=== PATIENT | female | born 1965 | race Caucasian/White ===

== ENCOUNTER → 2016-09-27 | Outpatient (CLI) | payer OTHER ==
[~2016-09-27] MED LIST: ATV5X PO; DICY10CA12 PO; ESCI10TA17 PO; LMC25 PO; LORA-741 PO; LXP/20 PO; MIRT30TA3 PO; MIRT30TA5 PO; OMEP20CA9 PO; OMEP20TA PO; ONDA4TAB9 PO; OPTIRAY 320 IV PRN; OXYC-57 PO; PROM25TA9 PO
--- NOTE | 2016-09-27 16:02 | DIAGNOSTIC IMAGING REPORT ---
ABDOMEN AND PELVIS CT WITH IV AND ORAL CONTRAST CT DOSE: 1570.13 mGy.cm HISTORY: Right lower quadrant abdominal pain. TECHNIQUE: Multiaxial CT images of the abdomen and pelvis were performed following the use of intravenous and oral contrast. COMPARISON STUDY: None. FINDINGS: A few subcentimeter pulmonary nodules remain stable and are considered to be benign. The liver, spleen, pancreas, kidneys, and adrenal glands are within normal limits. No bowel wall thickening or obstruction. The pelvic organs are unremarkable. No suspicious lytic or blastic osseous lesions. The appendix is normal in caliber measuring up to 6 mm in diameter. This remains unchanged. No periappendiceal fat stranding. No change in the submucosal fat deposition within the proximal colon. A few colonic diverticula. Tiny fat-containing umbilical hernia. Cholecystectomy. IMPRESSION: 1. Normal appendix. 2. No bowel wall thickening or obstruction. 3. Cholecystectomy. Electronically signed by: Galdino Carrasco M.D. 09/27/2016 4:00 PM Dictated Date/Time: 09/27/2016 3:46 PM
[2016-09-27 17:40] LABS: BASO % 0.3 %; BASO ABS # 0.02 K/uL (0-0.2); COMPLETE YES; EOS % 2.9 %; HEMATOCRIT 46.2 % (37-47); IG% 0.1 %; LYMPH % 31.1 %; LYMPH ABS # 2.15 K/uL (1.2-3.4); MEAN CELL VOLUME 93.5 fL (80-100); MEAN CORPUSCULAR HGB CONC 33.1 g/dl (32-36); MEAN PLATELET VOLUME 10.5 fL (7.4-10.4); MONO % 4.5 %; NEUT % 61.1 %; PLATELET COUNT 282 K/uL (130-400); RED BLOOD COUNT 4.94 M/uL (4.2-5.4); WHITE BLOOD COUNT 6.91 K/uL (4.8-10.8)
[2016-09-27 18:07] LABS: ALT/SGPT 23 U/L (12-78); AST/SGOT 8 U/L (15-37); BLOOD UREA NITROGEN 7 mg/dl (7-18); BUN/CREATININE RATIO 8.2 (10-20); CALCIUM 8.8 mg/dl (8.5-10.1); CARBON DIOXIDE 32 mmol/L (21-32); CHLORIDE 102 mmol/L (98-107); CREATININE 0.84 mg/dl (0.60-1.20); GLUCOSE 77 mg/dl (70-99); SODIUM 141 mmol/L (136-145)
[2016-09-27 18:09] LABS: ALKALINE PHOSPHATASE 122 U/L (45-117)
== END | disposition home or self-care (01) ==
LOC: C.CTS 13:34
PROVIDERS: ATTEND Internal Medicine
DX: R10.31 Right lower quadrant pain (principal); Z90.49 Acquired absence of other specified parts of digestive tract

== ENCOUNTER 2016-09-28 18:05 | Emergency (ER) | payer OTHER ==
[~2016-09-28] VITALS: Ht 158.8 cm; Wt 118.4 kg
[~2016-09-28 18:05] MED LIST changes: -ATV5X PO; -DICY10CA12 PO; -LMC25 PO; -LXP/20 PO; -MIRT30TA3 PO; -OMEP20CA9 PO; -ONDA4TAB9 PO
[2016-09-28 18:20] VITALS: TEMP 36.9; Ht 158.8 cm; Wt 118.4 kg
[2016-09-28] MEDS ORDERED: MoRPHine SULFATE 10 MG/ML CARP/VIAL IV STA (19:40)
[2016-09-28] MEDS ORDERED: SODIUM CHLORIDE 0.9% 1000ML 1,000 ML IV STA (19:40)
[2016-09-28] MEDS ORDERED: ONDANSETRON INJ 2 MG/ML 2 ML VIAL IV STA (19:40)
[2016-09-28 20:03] LABS: BASO % 0.4 %; BASO ABS # 0.03 K/uL (0-0.2); COMPLETE YES; EOS % 1.7 %; HEMATOCRIT 44.4 % (37-47); LYMPH % 28.4 %; LYMPH ABS # 2.05 K/uL (1.2-3.4); MEAN CELL VOLUME 93.5 fL (80-100); MEAN CORPUSCULAR HGB CONC 34.2 g/dl (32-36); MEAN PLATELET VOLUME 10.2 fL (7.4-10.4); MONO % 5.1 %; NEUT % 64.4 %; PLATELET COUNT 257 K/uL (130-400); RED BLOOD COUNT 4.75 M/uL (4.2-5.4); WHITE BLOOD COUNT 7.23 K/uL (4.8-10.8)
[2016-09-28 20:22] LABS: ALT/SGPT 28 U/L (12-78); BLOOD UREA NITROGEN 6 mg/dl (7-18); CALCIUM 8.5 mg/dl (8.5-10.1); CARBON DIOXIDE 29 mmol/L (21-32); CHLORIDE 105 mmol/L (98-107); CREATININE 0.89 mg/dl (0.60-1.20); GLUCOSE 88 mg/dl (70-99); POTASSIUM 3.8 mmol/L (3.5-5.1); SODIUM 142 mmol/L (136-145)
[2016-09-28 20:25] LABS: URINE APPEARANCE CLOUDY (CLEAR); URINE BILIRUBIN NEG (NEG); URINE COLOR DK YELLOW; URINE EPITHELIAL CELL AUTO >30 /lpf (0-5); URINE NITRITE NEG (NEG); URINE PH 5.5 (4.5-7.5); URINE SPECIFIC GRAVITY 1.021 (1.000-1.030); UROBILINOGEN NEG (NEG)
[2016-09-28 20:25] LABS: ALKALINE PHOSPHATASE 117 U/L (45-117); AST/SGOT 17 U/L (15-37)
[2016-09-28 20:35] LABS: MANUAL MICROSCOPIC REQUIRED? NO; REVIEW REQ? NO
--- NOTE | 2016-09-28 20:59 | DIAGNOSTIC IMAGING REPORT ---
PELVIC ULTRASOUND, TRANSABDOMINAL AND TRANSVAGINAL HISTORY: Right lower quadrant pain. COMPARISON: Abdomen and pelvis CT 09/27/2016. FINDINGS: Uterus: 7.8 x 4.4 x 4.7 cm. There are a few small nabothian cysts. Endometrial stripe: 4 mm in thickness. Right ovary: Obscured by overlying bowel gas. No adnexal masses. Left ovary: Obscured by overlying bowel gas. No adnexal masses. Miscellaneous:Trace pelvic free fluid. IMPRESSION: 1. No significant abnormality within the pelvis. 2. Trace pelvic free fluid is likely physiologic. 3. The ovaries were obscured by overlying bowel gas. However, no adnexal masses identified. Electronically signed by: Galdino Carrasco M.D. 09/28/2016 8:58 PM Dictated Date/Time: 09/28/2016 8:56 PM
[2016-09-28 21:33] VITALS: BP 124/94; PULSE 68; O2SAT 92
--- NOTE | 2016-09-29 15:01 | EMERGENCY ROOM VISIT NOTE ---
ED Visit Note First contact with patient: 19:08 Chief Complaint: Abdominal pain. History of Present Illness: Ms. Merida is a 51 year-old white female who ambulates into the ED accompanied by male friend complaining of right lower quadrant abdominal pain. Historically patient reports she was seen by her slots manager and laboratory tests and an abdominal CT were performed and were all reported as normal without any signs of an acute appendicitis. Patient reports she has been having similar symptoms once a year at this time. She has been diagnosed with ovarian cysts previously. She followed up with an MANAGER OF INVESTIGATIONS who she reports he was not going to do any testing because of her enlarged liver; I did review her medical records and with multiple CAT scans and ultrasounds there is never been a diagnosis of an enlarged liver. Patient reports a onset abdominal pain for approximately one week. She reports her pain started as a crampy sensation in the upper abdomen similar to her previous episodes of irritable bowel syndrome. She goes on to report 3 days ago her pain migrated and has constantly been located in the right lower quadrant since that time. Currently she describes her pain as someone stabbing her with a hot poker and twisting the poker just superior to McBurney's point. She rates her discomfort 10/10. Her pain is nonradiating. Her pain worsens with palpation. She has not identified any alleviating factors related to the pain. She reports she took Percocet approximately 10 PM last evening with minimal relief of her discomfort. Associated with her pain she reports she has been having hot flashes and chills, she has been nauseated and has not vomited and has had a few episodes of brown waterish stools. Patient denies sweats, skin eruptions, skin color changes, upper respiratory tract symptoms, shortness of breath, chest pain, diarrhea, constipation, rectal bleeding, black/tarry stools, urinary symptoms, hematuria, vaginal bleeding, vaginal discharge, back/flank pain. Review of Systems: As noted above in history of present illness. All body systems were reviewed and found to be negative as noted above. Past Medical History: As noted above, Iniguez's esophagus, bronchitis, multiple orthopedic injuries, breast reduction, irritable lesion. Current Medications: Percocet, Phenergan, omeprazole, dicyclomine, mirtazapine, Lexapro, Ativan, lamotrigine. Allergies to Medications: Latex, hydrocodone. Social History: Patient is currently employed; she lives with her and feels safe in her home environment; she admits to tobacco and alcohol use. Physical Examination: Vital Signs: Date Time Temp Pulse Resp B/P Pulse Ox O2 Delivery O2 Flow Rate FiO2 09/28/16 21:33 68 18 124/94 92 Room Air 09/28/16 19:58 75 18 137/77 92 Room Air 09/28/16 18:20 36.9 87 18 150/87 97 Room Air GENERAL: 51-year-old female in mild to moderate distress due to pain, nontoxic- appearing, afebrile and hemodynamically stable. NEUROLOGICAL: Awake, alert and oriented to person, place and time. Answering questions appropriately and following commands. Normal gait. Good hand eye coordination. SKIN: Warm, dry and pink. No soft tissue eruptions or trauma noted. HEENT: Atraumatic and normocephalic. PERRL. Sclera white and conjunctiva pink. Oral cavity moist and pink. Pharynx is nonerythematous or edematous. Speech normal. No lymphadenopathy. Trachea midline. No jugular venous distention. BACK: No tenderness over the bony spine. No CVA tenderness. THORAX: Lungs sounds are clear to auscultation and equal bilaterally with symmetrical chest wall. No wheezing, rales or rhonchi. No crepitus, tenderness , subcutaneous air or deformities noted. HEART: Regular rate and rhythm. No gallops, rubs or murmurs are appreciated. ABDOMEN: Obese and soft with moderate tenderness just superior to McBurney's point and extending superiorly in the right lower quadrant to the superior border of the right lower quadrant. Positive bowel sounds in all quadrants. No guarding, rigidity or organomegaly. EXTREMITIES: Moves all extremities well on command and with purpose. All distal neurovascular statuses are intact and equal bilaterally. ED Course: Patient is assessed as noted above. Laboratory Testing: Test 09/28/16 19:50 09/28/16 19:57 Range/Units White Blood Count 7.23 4.8-10.8 K/uL Red Blood Count 4.75 4.2-5.4 M/uL Hemoglobin 15.2 12.0-16.0 g/dL Hematocrit 44.4 37-47 % Mean Corpuscular Volume 93.5 80-100 fL Mean Corpuscular Hemoglobin 32.0 25-34 pg Mean Corpuscular Hemoglobin Concent 34.2 32-36 g/dl Platelet Count 257 130-400 K/uL Mean Platelet Volume 10.2 7.4-10.4 fL Neutrophils (%) (Auto) 64.4 % Lymphocytes (%) (Auto) 28.4 % Monocytes (%) (Auto) 5.1 % Eosinophils (%) (Auto) 1.7 % Basophils (%) (Auto) 0.4 % Neutrophils # (Auto) 4.66 1.4-6.5 K/uL Lymphocytes # (Auto) 2.05 1.2-3.4 K/uL Monocytes # (Auto) 0.37 0.11-0.59 K/uL Eosinophils # (Auto) 0.12 0-0.5 K/uL Basophils # (Auto) 0.03 0-0.2 K/uL RDW Standard Deviation 50.7 36.4-46.3 fL RDW Coefficient of Variation 15.0 11.5-14.5 % Immature Granulocyte % (Auto) 0.0 % Immature Granulocyte # (Auto) 0.00 0.00-0.02 K/uL Sodium Level 142 136-145 mmol/L Potassium Level 3.8 3.5-5.1 mmol/L Chloride Level 105 98-107 mmol/L Carbon Dioxide Level 29 21-32 mmol/L Anion Gap 8.0 3-11 mmol/L Blood Urea Nitrogen 6 7-18 mg/dl Creatinine 0.89 0.60-1.20 mg/dl Est Creatinine Clear Calc Drug Dose 94.3 ml/min Estimated GFR () 88.2 Estimated GFR (Non- 76.1 BUN/Creatinine Ratio 7.0 10-20 Random Glucose 88 70-99 mg/dl Calcium Level 8.5 8.5-10.1 mg/dl Total Bilirubin 0.3 0.2-1 mg/dl Direct Bilirubin < 0.1 0-0.2 mg/dl Aspartate Amino Transf (AST/SGOT) 17 15-37 U/L Alanine Aminotransferase (ALT/SGPT) 28 12-78 U/L Alkaline Phosphatase 117 45-117 U/L Total Protein 7.3 6.4-8.2 gm/dl Albumin 3.6 3.4-5.0 gm/dl Lipase 75 73-393 U/L Urine Color DK YELLOW Urine Appearance CLOUDY CLEAR Urine pH 5.5 4.5-7.5 Urine Specific [place] 1.021 1.000-1.030 Urine Protein NEG NEG Urine Glucose (UA) NEG NEG Urine Ketones NEG NEG Urine Occult Blood NEG NEG Urine Nitrite NEG NEG Urine Bilirubin NEG NEG Urine Urobilinogen NEG NEG Urine Leukocyte Esterase LARGE NEG Urine WBC (Auto) >30 0-5 /hpf Urine RBC (Auto) 0-4 0-4 /hpf Urine Hyaline Casts (Auto) 5-10 0-5 /lpf Urine Epithelial Cells (Auto) >30 0-5 /lpf Urine Bacteria (Auto) 1+ NEG Pelvic Ultrasound; Transabdominal and Transvaginal: Were reviewed by myself and read by the radiologist showing no significant abnormalities within the pelvis, trace pelvic fluid most likely physiologic, ovaries were obscured with overlying bowel gas but no adnexal masses were identified. Patient was hydrated with normal saline and patient received 6 mg of morphine IV and 4 mg of Zofran IV Patient was reassessed multiple times during her stay in the emergency department. Patient's case was reviewed with Dr. Dela Cruz; we agreed on diagnostic approach, treatment, disposition and plan. Patient was educated about lulú's findings and instructed on her treatment plan; she verbalizes understanding and agreement with this plan. Clinical Impression: Right lower quadrant abdominal pain. Decision-Making: Initially my differential diagnosis I considered appendicitis, constipation, ovarian cyst rupture, ovarian torsion, kidney stone, bowel obstruction, and other causes. Disposition: Patient discharged home in stable condition accompanied by her ; prior to departure she was reassessed and subjectively reported that she was pain and symptom-free. Plan: Patient was encouraged to continue to use acetaminophen for mild pain or her prescribed Percocet for severe pain; she was instructed not to take them together and separate there use by 6 hours. Patient was encouraged to continue to take her Zofran as needed for nausea/ vomiting. Patient was encouraged to follow-up with her slots manager and/or [facility] gynecology for specialty care and treatment. Patient was encouraged return the ED for worsening/uncontrolled pain, fevers, bloody stools, bloody vomitus or any new/concerning symptoms.
[2016-10-05] MEDS ORDERED: DICY10CA12 PO (00:15)
[2016-10-05] MEDS ORDERED: LMC25 PO (19:12)
== END 2016-09-28 21:33 | disposition home or self-care (01) ==
LOC: C.EDB 18:07 → C.EDC 21:33
DX: R10.31 Right lower quadrant pain (principal)

== ENCOUNTER → 2016-09-28 | Outpatient (CLI) | payer OTHER ==
[~2016-09-28] MED LIST changes: -OPTIRAY 320 IV PRN
== END | disposition home or self-care (01) ==
LOC: C.LABSPEC 07:37
PROVIDERS: ATTEND Internal Medicine
DX: R10.31 Right lower quadrant pain (principal)

== ENCOUNTER → 2016-10-03 | Outpatient (CLI) | payer OTHER ==
[~2016-10-03] MED LIST changes: +ATV5X PO; +DICY10CA12 PO; +LMC25 PO; +LXP/20 PO; +MIRT30TA3 PO; +OMEP20CA9 PO; +ONDA4TAB9 PO
[2016-10-06 04:01] LABS: CHLAMYDIA TRACH RNA*** NOT DETECTED (NOT DETECTED); GC (NEIS GONORRHOEAE)RNA** NOT DETECTED (NOT DETECTED)
== END | disposition home or self-care (01) ==
LOC: C.LABSPEC 17:53
PROVIDERS: ATTEND Obstetrics & Gynecology
DX: R10.31 Right lower quadrant pain (principal)

== ENCOUNTER 2016-10-05 22:00 | Emergency (ER) | payer OTHER ==
[~2016-10-05] VITALS: Ht 162.6 cm; Wt 119.7 kg
[~2016-10-05 22:00] MED LIST changes: -ATV5X PO; -LXP/20 PO; -MIRT30TA3 PO; -OMEP20CA9 PO; -ONDA4TAB9 PO
[2016-10-05 22:04] VITALS: TEMP 37; Ht 162.6 cm; Wt 119.7 kg
[2016-10-05] MEDS ORDERED: ONDANSETRON INJ 2 MG/ML 2 ML VIAL IV STA (22:14)
[2016-10-05] MEDS ORDERED: SODIUM CHLORIDE 0.9% 1000ML 1,000 ML IV STA (22:14)
[2016-10-05] MEDS ORDERED: MoRPHine SULFATE 4 MG/ML 1 ML CARP\\VIAL IV PRN (22:15)
[2016-10-05] MEDS ORDERED: MIRT30TA3 PO (22:35)
[2016-10-05] MEDS ORDERED: ONDA4TAB9 PO (22:35)
[2016-10-05] MEDS ORDERED: ATV5X PO (22:35)
[2016-10-05] MEDS ORDERED: LXP/20 PO (22:35)
[2016-10-05] MEDS ORDERED: OMEP20CA9 PO (22:35)
[2016-10-05 22:47] LABS: BASO % 0.4 %; BASO ABS # 0.03 K/uL (0-0.2); COMPLETE YES; EOS % 2.6 %; HEMATOCRIT 44.6 % (37-47); IG% 0.3 %; LYMPH ABS # 2.37 K/uL (1.2-3.4); MEAN CELL VOLUME 93.1 fL (80-100); MEAN CORPUSCULAR HEMOGLOBIN 31.3 pg (25-34); MEAN CORPUSCULAR HGB CONC 33.6 g/dl (32-36); MEAN PLATELET VOLUME 10.4 fL (7.4-10.4); NEUT % 59.7 %; PLATELET COUNT 266 K/uL (130-400); RED BLOOD COUNT 4.79 M/uL (4.2-5.4)
[2016-10-05 23:05] LABS: ALT/SGPT 22 U/L (12-78); AST/SGOT 11 U/L (15-37); BLOOD UREA NITROGEN 5 mg/dl (7-18); BUN/CREATININE RATIO 5.1 (10-20); CALCIUM 8.7 mg/dl (8.5-10.1); CARBON DIOXIDE 30 mmol/L (21-32); CHLORIDE 104 mmol/L (98-107); GLUCOSE 78 mg/dl (70-99); POTASSIUM 3.6 mmol/L (3.5-5.1); SODIUM 141 mmol/L (136-145)
[2016-10-05 23:06] LABS: PREG INTERNAL NEGATIVE QC NEG CLEAR BACKGROUND; PREG INTERNAL POSITIVE QC POS CONTROL LINE
[2016-10-05 23:08] LABS: ALKALINE PHOSPHATASE 119 U/L (45-117)
--- NOTE | 2016-10-05 23:30 | EMERGENCY ROOM VISIT NOTE ---
History Report prepared by Vipul: Nena Patel Under the Supervision of: Dr. Leonides Merino D.O. First contact with patient: 22:08 Chief Complaint: FLANK PAIN Stated Complaint: PAIN IN LOWER RT SIDE History of Present Illness The patient is a 51 year old female who presents to the Emergency Room with complaints of intermittent RLQ abdominal pain for the past 2 weeks. She has been seen in the ED for this pain and had a negative US and CT at that time. She followed up with her nuclear weapons mechanical specialist and had a normal exam. The patient states that this morning she lifted a bag of pellets and her pain returned. It has been worsening since then. Movement exacerbates her pain and she rates her pain as an 8/10 in severity. She states that she can feel a lump in her RLQ. She still has her appendix. Source of History: patient Onset: 2 weeks ago Position: abdomen (RLQ) Symptom Intensity: 8/10 Timing: intermittent, worsening Modifying Factors (Worsening): movement Note: Pt reports a lump in RLQ. Review of Systems See HPI for pertinent positives & negatives. A total of 10 systems reviewed and were otherwise negative. Past Medical & Surgical Medical Problems: (1) abscess of groin (2) Iniguez's esophagus (3) Bipolar disorder (4) gallbladder surgery (5) History of reduction of breast (6) Irritable colon (7) knee surgery Family History Cancer Heart disease Social History Smoking Status: Current Every Day Smoker Alcohol Use: occasionally Marital Status: Housing Status: lives with family Occupation Status: employed Current/Historical Medications Scheduled Dicyclomine Hcl (Dicyclomine Hcl), 10 MG PO HS Escitalopram Oxalate (Escitalopram Oxalate), 20 MG PO HS Lamotrigine (Lamotrigine), 100 MG PO HS Mirtazapine (Remeron), 30 MG PO HS Omeprazole (Prilosec), 20 MG PO BID Scheduled PRN Lorazepam (Lorazepam), 0.5 MG PO BID PRN for Anxiety Ondansetron (Ondansetron HCl), 4 MG PO Q8 PRN for Nausea Allergies Coded Allergies: Latex1 -Allergic Contact Dermititis (Verified Allergy, Unknown, RASH, ) Hydrocodone (Verified Adverse Reaction, Intermediate, GI UPSET, 10/05/16) Uncoded Allergies: SUN BLOCK (Allergy, Unknown, 2nd degree giron., 7/21/14) Reported by PT. Physical Exam Vital Signs Date Time Temp Pulse Resp B/P Pulse Ox O2 Delivery O2 Flow Rate FiO2 10/06/16 00:24 58 18 114/73 95 Room Air 10/05/16 22:04 37.0 73 16 163/100 97 Room Air Physical Exam GENERAL: Patient is awake, alert, and in no acute distress. Patient is resting comfortably and showing no signs of anxiety EYES: The conjunctivae are clear. The pupils are round and reactive. EARS, NOSE, MOUTH AND THROAT: The nose is without any evidence of any deformity. Mucous membranes are moist tongue is midline NECK: The neck is nontender and supple. RESPIRATORY: Normal respiratory effort is noted there is no evidence of wheezing rhonchi or rales CARDIOVASCULAR: Regular rate and rhythm noted there no murmurs rubs or gallops normal S1 normal S2 GASTROINTESTINAL: The abdomen is obese and nondistended, tenderness in the RLQ, no specific guarding or rigidity. MUSCULOSKELETAL/EXTREMITIES: There is no evidence of gross deformity full range of motion is noted in the hips and shoulders SKIN: There is no obvious evidence of any rash. There are no petechiae, pallor or cyanosis noted. NEUROLOGIC: Patient is awake alert and oriented x3 Medical Decision & Procedures Laboratory Results 10/05/16 22:26 Red Blood Count 4.79, Mean Corpuscular Volume 93.1, Mean Corpuscular Hemoglobin 31.3, Mean Corpuscular Hemoglobin Concent 33.6, Mean Platelet Volume 10.4, Neutrophils (%) (Auto) 59.7, Lymphocytes (%) (Auto) 32.0, Monocytes (%) (Auto) 5.0, Eosinophils (%) (Auto) 2.6, Basophils (%) (Auto) 0.4, Neutrophils # (Auto) 4.42, Lymphocytes # (Auto) 2.37, Monocytes # (Auto) 0.37, Eosinophils # (Auto) 0.19, Basophils # (Auto) 0.03 10/05/16 22:26 Test 10/05/16 22:25 10/05/16 22:26 Urine Color YELLOW Urine Appearance CLEAR (CLEAR) Urine pH 7.0 (4.5-7.5) Urine Specific [place] 1.001 (1.000-1.030) Urine Protein NEG (NEG) Urine Glucose (UA) NEG (NEG) Urine Ketones NEG (NEG) Urine Occult Blood NEG (NEG) Urine Nitrite NEG (NEG) Urine Bilirubin NEG (NEG) Urine Urobilinogen NEG (NEG) Urine Leukocyte Esterase SMALL (NEG) Urine WBC (Auto) 1-5 /hpf (0-5) Urine RBC (Auto) 0-4 /hpf (0-4) Urine Hyaline Casts (Auto) 0 /lpf (0-5) Urine Epithelial Cells (Auto) >30 /lpf (0-5) Urine Bacteria (Auto) NEG (NEG) White Blood Count 7.40 K/uL (4.8-10.8) Red Blood Count 4.79 M/uL (4.2-5.4) Hemoglobin 15.0 g/dL (12.0-16.0) Hematocrit 44.6 % (37-47) Mean Corpuscular Volume 93.1 fL (80-100) Mean Corpuscular Hemoglobin 31.3 pg (25-34) Mean Corpuscular Hemoglobin Concent 33.6 g/dl (32-36) Platelet Count 266 K/uL (130-400) Mean Platelet Volume 10.4 fL (7.4-10.4) Neutrophils (%) (Auto) 59.7 % Lymphocytes (%) (Auto) 32.0 % Monocytes (%) (Auto) 5.0 % Eosinophils (%) (Auto) 2.6 % Basophils (%) (Auto) 0.4 % Neutrophils # (Auto) 4.42 K/uL (1.4-6.5) Lymphocytes # (Auto) 2.37 K/uL (1.2-3.4) Monocytes # (Auto) 0.37 K/uL (0.11-0.59) Eosinophils # (Auto) 0.19 K/uL (0-0.5) Basophils # (Auto) 0.03 K/uL (0-0.2) RDW Standard Deviation 51.7 fL (36.4-46.3) RDW Coefficient of Variation 15.0 % (11.5-14.5) Immature Granulocyte % (Auto) 0.3 % Immature Granulocyte # (Auto) 0.02 K/uL (0.00-0.02) Anion Gap 7.0 mmol/L (3-11) Est Creatinine Clear Calc Drug Dose 86.7 ml/min Estimated GFR () 76.6 Estimated GFR (Non- 66.1 BUN/Creatinine Ratio 5.1 (10-20) Calcium Level 8.7 mg/dl (8.5-10.1) Total Bilirubin 0.3 mg/dl (0.2-1) Direct Bilirubin < 0.1 mg/dl (0-0.2) Aspartate Amino Transf (AST/SGOT) 11 U/L (15-37) Alanine Aminotransferase (ALT/SGPT) 22 U/L (12-78) Alkaline Phosphatase 119 U/L (45-117) Total Protein 7.6 gm/dl (6.4-8.2) Albumin 3.6 gm/dl (3.4-5.0) Lipase 86 U/L (73-393) Human Chorionic Gonadotropin, Qual NEG (NEG) Laboratory results per my review. Medications Administered Medications (Trade) Dose Ordered Sig/Leann Route Start Time Stop Time Status Last Admin Dose Admin Sodium Chloride (Nss 1000ml) 1,000 ml @ 999 mls/hr Q1H1M STAT IV 10/05/16 22:14 10/05/16 23:14 DC 10/05/16 22:50 999 MLS/HR Ondansetron HCl (Zofran Inj) 4 mg NOW STAT IV 10/05/16 22:14 10/05/16 22:16 DC 10/05/16 22:50 4 MG Morphine Sulfate (MoRPHine SULFATE INJ) 4 mg Q15M PRN IV 10/05/16 22:15 10/06/16 01:19 DC 10/05/16 22:50 4 MG ED Course 8: The patient was evaluated in room A3. A complete history and physical examination were performed. 2214: Zofran 4 mg IV, NSS 1000 ml @ 999 mls/hr IV 2215: Morphine sulfate 4 mg IV - PRN 0030: I reassessed the patient at this time. She is feeling better and resting comfortably. I discussed the results and treatment plan with the patient. I answered all pertaining questions that she had. She expressed understanding and verbalized agreement. The patient will be discharged home. Medical Decision Differential diagnosis: Etiologies such as appendicitis, diverticulitis, PUD, biliary pathology, UTI, pancreatitis, obstruction, mesenteric ischemia, aortic pathology, infections, inflammatory bowel disease, renal colic, as well as others were entertained. Nursing notes reviewed. The patient's recent CAT scan was reviewed. The patient is a 51-year-old female who presented to the emergency department for an evaluation of right lower quadrant abdominal pain. The patient was here recently with similar complaints. Her CAT scan at that time showed a normal appendix. Her abdominal exam was not consistent with an acute surgical abdomen. She was treated with IV fluids in the emergency department. She was also treated with IV pain medication IV antiemetics. The patient had a normal white blood cell count. I do not feel this represents appendicitis at this time. She states it at this time she does have a bulging in this area. I would wonder for represents a paracentral hernia. She was given follow-up information with the on -call general surgeon. She was encouraged to rest and avoid any strenuous activity or heavy lifting. She was also encouraged to return to the emergency department immediately if symptoms change worsen or the need arises. Impression Primary Impression: Right lower quadrant abdominal pain Scribe Attestation The scribe's documentation has been prepared under my direction and personally reviewed by me in its entirety. I confirm that the note above accurately reflects all work, treatment, procedures, and medical decision making performed by me. Departure Information Dispostion Home / Self-Care Referrals Natan Goldstein M.D. ([facility]) (PCP) Nico Moreno M.D. Forms HOME CARE DOCUMENTATION FORM, IMPORTANT VISIT INFORMATION, Work Instructions Patient Instructions ED Abd Pain Unkn Cause Fem, My [facility] Additional Instructions Call your family doctor in the morning to schedule a follow-up appointment. Rest and avoid any strenuous activity. Continue all medications as prescribed. Return to the emergency department if symptoms change worsen or if the need arises.
[2016-10-05 23:35] LABS: URINE APPEARANCE CLEAR (CLEAR); URINE BILIRUBIN NEG (NEG); URINE COLOR YELLOW; URINE EPITHELIAL CELL AUTO >30 /lpf (0-5); URINE NITRITE NEG (NEG); URINE SPECIFIC GRAVITY 1.001 (1.000-1.030); UROBILINOGEN NEG (NEG)
[2016-10-05 23:39] LABS: MANUAL MICROSCOPIC REQUIRED? NO; REVIEW REQ? NO
[2016-10-06 00:24] VITALS: BP 114/73; PULSE 58; O2SAT 95
== END 2016-10-06 00:54 | disposition home or self-care (01) ==
LOC: C.EDB 22:01 → C.EDA 10-06 00:54
DX: R10.31 Right lower quadrant pain (principal); K22.70 Barrett's esophagus without dysplasia; F31.9 Bipolar disorder, unspecified; F17.200 Nicotine dependence, unspecified, uncomplicated